=== PATIENT | female | born 1970 | race Asian ===

== ENCOUNTER 2020-05-08 21:23 | Emergency (ER) | payer BC ==
[~2020-05-08] VITALS: Ht 160 cm; Wt 50.3 kg
[2020-05-08 21:54] VITALS: Ht 160 cm; Wt 50.3 kg
[2020-05-08 23:05] VITALS: BP 161/86
== END 2020-05-08 23:05 | disposition home or self-care (01) ==
LOC: ED 21:23
DX: R21 Rash and other nonspecific skin eruption (principal)